=== PATIENT | male | born 1955 | race Caucasian/White ===

== ENCOUNTER 2022-12-27 21:49 | Emergency (ER) | payer MEDICARE, OTHER, SELFPAY ==
[2022-12-27 21:50] VITALS: BP 162/80; PULSE 83; RESP 15; TEMP 36.3; O2SAT 97; BMI 36.6
--- NOTE | 2022-12-27 22:29 | EKG12_ITS ---
Test Reason : CP Blood Pressure : / mmHG Vent. Rate : 080 BPM Atrial Rate : 080 BPM P-R Int : 192 ms QRS Dur : 100 ms QT Int : 388 ms P-R-T Axes : 049 000 044 degrees QTc Int : 447 ms Sinus rhythm with frequent Premature ventricular complexes Otherwise normal ECG Confirmed by EDITH JESUS, MEE ([id number]), index editor DIEGO DENNIS ([id number]) on 12/30/2022 9:24:32 AM Referred By: SANTI Confirmed By:MEE SHARMA MD
--- NOTE | 2022-12-27 22:30 | EDS_ITS ---
HPI History of Present Illness Chief Complaint: Chest Pain Informant: patient and spouse/S.O. Narrative Narrative: Patient presents with episodes of chest pain. He felt as though the lower part of his breastbone in the center. He states it was not a hard hit but he just felt like something was hitting that bone almost from the inside. It lasted for that brief second. He would then have another episode of this. He had about 6 of these spaced out over what sounds like 20 or 30 minutes. In between each of these hits he felt normal. He was not short of breath. He was not diaphoretic. He was not nauseated. He did not get lightheaded dizzy or feel li ke he was going to pass out. He was recently diagnosed with irregular heart rate/PVCs. But he does not really feel these. There is no family history of early heart disease. Patient does have high blood pressure and is on lisinopril hydrochlorothiazide as well as amlodipine. His chart mentions high cholesterol but I see no prior cholesterol measurements, he denies being on meds for this, and he denies having high cholesterol. He is a remote smoker. He has no diabetes. He does have some mild obesity. He has had a prior stress test but it was 20 years ago. He also reports he has had these symptoms in the past but it was many years ago. He does not have them regularly. He does not have history of recent travel surgery immobilization personal or family history of DVT or PE. He is not having symptoms now. Nothing seemed to make the symptoms better or worse. Prior Similar Symptoms: Yes [facility] Medical History (Updated 12/28/22 @ 00:[address] Hamilton Hurd MD) Bipolar 1 disorder Carcinoid tumor Depression Dysthymic disorder Herpes simplex Hyperlipemia Hypertension Impaired fasting blood sugar Liver lesion, left lobe Sleep apnea Home Medications fluoxetine 40 mg capsule 60 mg PO DAILY 07/26/19 [History Last Taken Unknown] losartan 50 mg-hydrochlorothiazide 12.5 mg tablet 1 ea PO DAILY 07/26/19 [History Last Taken Unknown] amlodipine 2.5 mg tablet 2.5 mg PO DAILY 12/27/22 [History Last Taken Unknown] Allergy/AdvReac Type Severity Reaction Status Date / Time No Known Allergies Allergy Unverified 12/27/22 21:52 Family History Mother CVA (cerebral vascular accident) Uncle Diabetes Surgical History H/O arthroscopy of shoulder History of arthroscopic surgery of elbow History of bowel resection S/P cholecystectomy Social History household members: spouse Smoking Status: Former smoker alcohol intake: never substance use type: does not use ROS ROS ED Constitutional Constitutional ED: Denies chills, fever(s) or sweats ENT ENT ED: Denies ear pain or rhinorrhea Cardiovascular Cardiovascular: Reports as per HPI and chest pain Respiratory/Chest Respiratory/Chest: Denies cough or dyspnea Gastrointestinal Gastrointestinal: Denies nausea or vomiting Genitourinary Genitourinary ED: Denies urinary frequency Musculoskeletal Musculoskeletal: Denies myalgias Integumentary Denies rash Neurologic Neurologic: Denies headache(s) Psychiatric Psychiatric: Denies anxiety Endocrine Endocrinology: Denies polydipsia or polyuria Hematologic/Lymphatic Hematologic/Lymphatic: Denies easy bleeding or easy bruising Allergic/Immunologic Allergic/Immunologic ED: Denies urticaria EXAM Physical Exam Narrative Exam Narrative: No knownPatient awake alert appropriate no acute distress. He is laying comfortably on the bed. Hooked up to monitor. HEENT shows no pallor. No rash. No diaphoresis. Oropharynx is normal. Eye: No icterus or pallor Neck shows no JVD Lungs are clear and he takes good deep breaths without any pain or discomfort. He has no sternal tenderness. He does point to the very lower portion of the sternum and xiphoid as the area where he feels this sensation. Heart is regular with rate of approximately 75. He has not infrequent PVCs. But he does not seem to feel these. No couplets or greater noted. Abdomen is soft nontender. Bowel sounds are normal. Back shows no CVA tenderness. Extremities show no edema cords asymmetry distended veins or tenderness along the deep venous system. Peripheral pulses are normal x4. Neurologic shows the patient to be awake alert oriented x3. Normal sensation and strength. Skin shows some mild erythema along the skin of the sternum but evidently this is chronic for him. It does not look acutely infected. There is no vesicles. There is no abscess. Most of this is in the upper sternum when he felt the pain is at the lower sternum/xiphoid area. Patient is not diaphoretic. Const Vital Signs: 12/27/22 21:50 12/27/22 22:26 12/27/22 22:36 Temperature 97.4 F L Temperature Source Temporal Pulse Rate 83 Respiratory Rate 15 Respiratory Pattern Normal Blood Pressure 162/80 H Blood Pressure Mean 107 Pulse Ox 97 Oxygen Delivery Method Room Air Room Air Heart Score History: Slightly/Non-Suspicious ECG: Normal Age: >/= 65 years Risk Factors: 1 or 2 Risk Factors Score: 3 MDM MDM MDM Narrative Medical decision making narrative: My independent interpretation of the patient's single view AP chest x-ray shows no acute process. I see no infiltrate, significant cardiomegaly, or pneumothorax. Final reading by radiology shows no radiographic evidence of acute cardiopulmonary disease. Patient CBC including white count hemoglobin and platelets are normal. Electrolytes are normal including kidney function. Glucose is minimally up at 128. His troponin is normal at 5. This patient's story is not a good story for angina. But he had the symptoms shortly before arrival. I will do a delta troponin. I believe he is safe for discharge as long as this is not showing significant elevations. He is asymptomatic. His symptoms are not consistent with pulmonary embolus with multiple episodes of brief focal chest pain at his lower sternum. He has no risk factors for PE. As long as his delta troponin does not show elevation follow-up with his primary physician is appropriate. Lab Data Attestation: I reviewed the patient's lab results. Labs: Laboratory Results - last 24 hr 12/27/22 12/27/22 22:33 22:33 WBC 10.6 RBC 4.83 Hgb 14.1 Hct 42.1 MCV 87.2 MCH 29.2 MCHC 33.5 RDW Std Deviation 41.4 RDW Coeff of Segundo 13.1 Plt Count 263 MPV 9.0 Immature Gran % (Auto) 0.300 Neut % (Auto) 55.0 Lymph % (Auto) 28.6 Greene % (Auto) 10.1 H Eos % (Auto) 5.0 Baso % (Auto) 1.0 Absolute Neuts (auto) 5.8 Absolute Lymphs (auto) 3.02 Nucleated RBC % 0 Sodium 142 Potassium 3.7 Chloride 106 Carbon Dioxide 28.0 Anion Gap 8 BUN 18 Creatinine 1.08 Estim Creat Clear Calc 68.53 Est GFR (MDRD) Af Amer 87 Est GFR (MDRD) Non-Af 72 BUN/Creatinine Ratio 16.7 Glucose 128 H Calcium 9.5 Troponin I High Sens 5 Radiography Diagnostic Testing: Clinical Impression(s) from Imaging Studies Chest X-Ray 12/27/22 22:40 IMPRESSION: No radiographic evidence of acute cardiopulmonary disease. Electronically Signed: Corby Ivory MD at 23:15 EST , EKG Initial EKG: Comments: My independent interpretation of the EKG done for intermittent chest pain shows a sinus rhythm overall rate of 80. There is frequent unifocal PVCs. No acute ST elevation or depression. ME interval, QRS duration and QTc are normal. I looked on our system and did not find a prior EKG. Discharge Plan Triage Chief Complaint: Chest Pain ED Provider: Hamilton Hurd Dx/Rx/DC Orders Clinical Impression: Chest pain, Unifocal PVCs Instructions: ED Chest Pain, Uncertain Cause Prescriptions: No Action losartan-hydrochlorothiazide 1 EACH tablet 1 ea PO DAILY fluoxetine 40 MG capsule 60 mg PO DAILY amlodipine 2.5 mg Tablet 2.5 mg PO DAILY Primary Care Provider: Ace Jules Referrals: Govind Gutierrez [employer]ING SUPERVISOR, [employer]PER[employer] [Non-Staff] - As soon as possible
[2022-12-27] MEDS: Aspirin 81 MG TAB.CHEW 324 MG PO (22:37)
--- NOTE | 2022-12-27 22:40 | RAD_ITS ---
INDICATION: chest pain EXAMINATION/TECHNIQUE: X-RAY - portable upright AP chest x-ray COMPARISON: None. FINDINGS: LINES/DEVICES: None. LUNGS: No consolidation, edema or effusion. No pneumothorax. MEDIASTINUM AND CARDIOVASCULAR STRUCTURES: Cardiac silhouette not enlarged. Central airways and mediastinal contour are unremarkable. BONES AND SOFT TISSUES: Unremarkable. RAD/Chest 1 View (Portable) IMPRESSION: No radiographic evidence of acute cardiopulmonary disease. Electronically Signed: Corby Ivory MD at 23:15 EST ,
[2022-12-27 23:03] LABS: Absolute Lymphocyte Count 3.02 X10^3/uL (0.83-4.51); Absolute Neutrophil Count 5.8 X10^3/uL (2.0-7.7); Basophil# 0.11 X10^3/uL; Eosinophil# 0.53 X10^3/uL; Hematocrit 42.1 % (40-54); Hemoglobin 14.1 g/dL (13.0-16.5); Lymphocyte # 3.02 X10^3/ul (0.83-4.51); Lymphocyte % 28.6 % (19-41); Mean Corp Hgb Conc 33.5 g/dL (32-36); Mean Corpuscular Hgb 29.2 pg (27.0-32.0); Mean Corpuscular Volume 87.2 fL (80-94); Monocyte# 1.07 X10^3/uL; Monocyte% 10.1 % (0-10); NRBC Flagged by Analyzer 0 % (0-5); Neutrophil # 5.81 X10^3/uL (2.7-7.7); Platelet Count 263 K/mm3 (150-450); RBC Distribution Width CV 13.1 % (11.6-14.6); RBC Distribution Width SD 41.4 fl (35.1-43.9); Red Blood Count 4.83 M/mm3 (4.6-6.2); White Blood Count 10.6 K/mm3 (4.4-11.0)
[2022-12-27 23:19] LABS: Anion Gap 8 (5-15); BUN 18 mg/dL (7-18); BUN/Creat Ratio 16.7 RATIO (10-20); Calcium,Total 9.5 mg/dL (8.5-10.1); Chloride 106 mmol/L (98-107); Creatinine, Serum 1.08 mg/dL (0.70-1.30); EST Glomerular Filtration Rate 72 mL/min (>60); Est Glom Filt Rate - Afr Amer 87 mL/min (>60); Estimated Creatinine Clearance 68.53 ml/min; Glucose 128 mg/dL (74-106); Potassium 3.7 mmol/L (3.5-5.1); Sodium Level 142 mmol/L (136-145); Troponin-I HS (w/2H Reflex) 5 pg/mL (3.0-78.0)
[2022-12-28 00:58] LABS: Reflex Troponin-HS? (from REC) Y
[2022-12-28 01:06] VITALS: PULSE 73; RESP 19; O2SAT 95
[2022-12-28 01:26] LABS: Troponin-I HS 6 pg/mL (3.0-78.0)
[2022-12-28 01:54] VITALS: BP 145/88; PULSE 79; RESP 16; O2SAT 97
== END 2022-12-28 01:54 | disposition home or self-care (01) ==
PROVIDERS: Emergency Provider Emergency Medicine; PCP Internal Medicine; Visit Provider Emergency Medicine
DX: R07.9 Chest pain, unspecified (principal); F31.9 Bipolar disorder, unspecified; I49.3 Ventricular premature depolarization; E66.9 Obesity, unspecified; E78.5 Hyperlipidemia, unspecified; R55 Syncope and collapse; Z87.891 Personal history of nicotine dependence; I10 Essential (primary) hypertension
CPT/HCPCS: 71045; 80048; 84484; 85025; 93005; 99284; A4216

== ENCOUNTER 2023-02-04 10:40 | Emergency (ER) | payer MEDICARE, OTHER, SELFPAY ==
[2023-02-04 10:42] VITALS: BP 132/71; PULSE 68; RESP 18; TEMP 35.8; O2SAT 98; BMI 38.0
--- NOTE | 2023-02-04 11:16 | EKG12_ITS ---
Test Reason : CP Blood Pressure : / mmHG Vent. Rate : 062 BPM Atrial Rate : 062 BPM P-R Int : 190 ms QRS Dur : 098 ms QT Int : 412 ms P-R-T Axes : 018 008 031 degrees QTc Int : 418 ms Normal sinus rhythm Normal ECG Confirmed by ROXY JESUS, CHIQUIS ([id number]), book or script editor DIEGO DENNIS ([id number]) on 02/06/2023 8:58:13 AM Referred By: IWONA/KAY Confirmed By:CHIQUIS RAMSEY MD
--- NOTE | 2023-02-04 11:18 | EX.ED.DYSGE1 ---
HPI History of Present Illness Chief Complaint: Chest Pain Informant: patient Narrative Narrative: Patient presenting for 2 different symptom issues, initially chest discomfort he states it felt like some burning/pressure this morning in his lower chest/epigastrium, it sort of went away until the next issue became a problem, when the chest discomfort returned. He states he was on the ground trying to look under a wall, doing electrical work in a structure, and upon landing on the ground rolling over onto his back and looking up, he suddenly became vertiginous. He felt disoriented, his focus was off although he did not have any acute visual disturbance, he laid there on his stomach prone for a little while until it resolved, then he was able to get up and walk to the bathroom, he sat on the toilet and then was off balance and actually fell off the toilet without an injury. He has not had recurrence of the vertigo since then became right here, he states that the chest discomfort recurred as he was getting the vertigo, it is mild now but still present as far as the chest discomfort. Denies any dyspnea, recent cough, no history of cardiac issues. He takes antihypertensives and is compliant with those. He had vertigo in the past. Denies any earache now, tinnitus, or headache. Denies any recent URI or gastroenteritis symptoms in the last couple weeks or now. [facility] Medical History (Updated 02/04/23 @ 13:[address] Oracio Cuevas MD) Bipolar 1 disorder Carcinoid tumor Depression Dysthymic disorder Herpes simplex Hyperlipemia Hypertension Impaired fasting blood sugar Liver lesion, left lobe Sleep apnea Home Medications fluoxetine 40 mg capsule 60 mg PO DAILY 07/26/19 [History Last Taken Unknown] losartan 50 mg-hydrochlorothiazide 12.5 mg tablet (Hyzaar) 1 ea PO DAILY 07/26/19 [History Last Taken Unknown] amlodipine 2.5 mg tablet 2.5 mg PO DAILY 12/27/22 [History Last Taken Unknown] meclizine 25 mg tablet 25 mg PO Q8H PRN PRN Dizziness #20 tabs 02/04/23 [Rx Last Taken Unknown] metoprolol succinate 25 mg tablet,extended release 24 hr 25 mg PO DAILY 02/04/23 [History Last Taken Unknown] Allergy/AdvReac Type Severity Reaction Status Date / Time No Known Allergies Allergy Verified 02/04/23 10:43 Family History Mother CVA (cerebral vascular accident) Uncle Diabetes Surgical History H/O arthroscopy of shoulder History of arthroscopic surgery of elbow History of bowel resection S/P cholecystectomy Social History household members: spouse Smoking Status: Former smoker alcohol intake: never substance use type: does not use ROS ROS ED Constitutional Constitutional ED: Denies chills or fever(s) Eyes Eyes: Denies change in vision or diplopia ENT ENT ED: Denies rhinorrhea or sore throat Cardiovascular Cardiovascular: Reports chest pain; Denies palpitations Respiratory/Chest Respiratory/Chest: Denies cough or dyspnea Gastrointestinal Gastrointestinal: Reports abdominal pain; Denies diarrhea, nausea or vomiting Genitourinary Genitourinary ED: Denies dysuria or hematuria Musculoskeletal Musculoskeletal: Denies back pain or neck pain Integumentary Denies abscess or rash Neurologic Neurologic: Reports vertigo; Denies headache(s), paresthesias or weakness Psychiatric Psychiatric: Denies anxiety or suicidal thoughts EXAM Physical Exam Const Vital Signs: 02/04/23 10:42 02/04/23 11:19 02/04/23 12:03 Temperature 96.5 F L Temperature Source Temporal Pulse Rate 68 60 Respiratory Rate 18 15 Blood Pressure 132/71 H 145/76 H Blood Pressure Mean 91 99 Pulse Ox 98 97 96 Oxygen Delivery Method Room Air Nasal Cannula Room Air Positive well nourished and well developed General Appearance ED: well developed and NAD HEENT Reports TM's clear and moist mucous membranes HEENT Narrative: EAC normal bilaterally. No mastoiditis or tenderness. normocephalic and atraumatic Tympanic Membrane ED: Yes TM's clear Eyes PERRL and EOMs intact bilaterally Eyes Narrative: At rest, no horizontal, vertical, rotatory nystagmus. Neck full ROM and supple Resp normal respiratory effort and clear to auscultation bilaterally Cardio regular rate, regular rhythm and no murmurs GI non-tender and non-distended GI Narrative: No pulsatile mass palpable. Equal bilateral radial and dorsalis pedis pulses 2+/4 Auscultation: normoactive bowel sounds Palpation: soft Back/Spine no CVA tenderness General Back: other FROM Extremity normal to inspection General Extremety ED: Negative for edema, pulses abnormal or tenderness General Extremity: Negative for edema or pulses abnormal Neuro oriented x3, CN's II-XII intact bilaterally and no sensory deficits noted Neuro Narrative: Normal [id number] and [id number] bilaterally. Positive Gregory-Hallpike with reproduction of symptoms and horizontal nystagmus to the right, nothing when doing the same maneuver to the left. Normal neurologic exam otherwise. Sensorium / Orientation: awake and alert Motor Exam: strength 5/5 throughout Psych mental status grossly normal Skin no rashes or lesions noted and no wounds MDM MDM MDM Narrative Medical decision making narrative: EKG and troponin normal, 2 view chest x-ray my interpretation normal, radiology in agreement. The rest of his labs are normal as well except for his lipase which is slightly elevated. Patient has had prior cholecystectomy. His abdomen is benign, he does not have a leukocytosis and I do not think he needs any emergent abdominal imaging right now. With his elevated lipase that may be the explanation of his lower chest/epigastric discomfort and I think he can be discharged home with this, to do a full liquid diet and then advance his diet as able gradually, following up with his doctor or returning if worse/any other issues. He is comfortable with that plan and feeling much better after meclizine, his vertigo is very likely to be peripheral, and I will give him ENT information if it does not resolve on its own. Lab Data Attestation: I reviewed the patient's lab results. Labs: Laboratory Results - last 24 hr 02/04/23 02/04/23 11:35 11:35 WBC 7.7 RBC 4.72 Hgb 14.0 Hct 41.9 MCV 88.8 MCH 29.7 MCHC 33.4 RDW Std Deviation 43.3 RDW Coeff of Segundo 13.2 Plt Count 233 MPV 8.8 Immature Gran % (Auto) 0.700 Neut % (Auto) 60.8 Lymph % (Auto) 23.7 Calhoun % (Auto) 7.7 Eos % (Auto) 5.9 H Baso % (Auto) 1.2 H Absolute Neuts (auto) 4.7 Absolute Lymphs (auto) 1.82 Nucleated RBC % 0 Sodium 140 Potassium 3.7 Chloride 104 Carbon Dioxide 28.0 Anion Gap 8 BUN 23 H Creatinine 1.15 Estim Creat Clear Calc 63.48 Est GFR (MDRD) Af Amer 81 Est GFR (MDRD) Non-Af 67 BUN/Creatinine Ratio 20.0 Glucose 132 H Calcium 9.2 Troponin I High Sens 5 Lipase 481 H Radiography Diagnostic Testing: Clinical Impression(s) from Imaging Studies Chest X-Ray 02/04/23 11:53 IMPRESSION: The lungs are clear. No acute abnormality is seen. Electronically Signed: Abelino Vargas MD at 12:10 EST , Rhythm Strip Rhythm Strip: Sinus Rhythm Rate: 65 Ectopy: None EKG Initial EKG: Attestation: I personally reviewed and interpreted this EKG as follows: Interpretation: Sinus Rhythm and No Acute Injury Pattern Comments: Normal EKG Prior EKG tracings: available for review Prior: Unchanged Discharge Plan Triage Chief Complaint: Chest Pain ED Provider: Oracio Cuevas Dx/Rx/DC Orders Clinical Impression: Peripheral positional vertigo of right ear, Elevated lipase Instructions: Full Liquid Diet Dc, ED BPV Vertigo, ED Diet, Schleicher (Adult) Prescriptions: New meclizine [meclizine] 25 MG tablet 25 mg PO Q8H PRN PRN (Reason: Dizziness) Qty: 20 0RF No Action losartan-hydrochlorothiazide [Hyzaar] 1 EACH tablet 1 ea PO DAILY fluoxetine 40 MG capsule 60 mg PO DAILY amlodipine 2.5 mg Tablet 2.5 mg PO DAILY metoprolol succinate 25 mg tablet extended release 24 hr 25 mg PO DAILY Label Comments: TAKE 1 TABLET BY MOUTH EVERY DAY Primary Care Provider: Ace Jules Referrals: Theron Pavon MD [Med Staff - Active Staff] - 1 Week if not improving (For vertigo) Ace Jules MD [Primary Care Provider] - 3-5 Days if not improving Activity Restrictions/Additional Instructions: Follow the full liquid diet for the next 48 hours approximately. Then advance her diet as tolerated, may try bland diet after that for a day or 2. Disposition Disposition: Home, Self Care
[2023-02-04 11:19] VITALS: O2SAT 97
[2023-02-04] MEDS: Meclizine HCl 25 MG Tablet PO (11:42)
[2023-02-04] MEDS: Ondansetron 4 MG/2 ML Vial IV (11:43)
[2023-02-04 11:46] LABS: Absolute Lymphocyte Count 1.82 X10^3/uL (0.83-4.51); Absolute Neutrophil Count 4.7 X10^3/uL (2.0-7.7); Basophil# 0.09 X10^3/uL; Basophil% 1.2 % (0-1); Eosinophil# 0.45 X10^3/uL; Eosinophils% 5.9 % (0-5); Hematocrit 41.9 % (40-54); Lymphocyte # 1.82 X10^3/ul (0.83-4.51); Lymphocyte % 23.7 % (19-41); Mean Corp Hgb Conc 33.4 g/dL (32-36); Mean Corpuscular Hgb 29.7 pg (27.0-32.0); Mean Corpuscular Volume 88.8 fL (80-94); Mean Platelet Vol. 8.8 fl (6.2-12.0); Monocyte# 0.59 X10^3/uL; Monocyte% 7.7 % (0-10); NRBC Flagged by Analyzer 0 % (0-5); Neutrophil # 4.69 X10^3/uL (2.7-7.7); Neutrophil % 60.8 % (47-70); Platelet Count 233 K/mm3 (150-450); RBC Distribution Width CV 13.2 % (11.6-14.6); RBC Distribution Width SD 43.3 fl (35.1-43.9); Red Blood Count 4.72 M/mm3 (4.6-6.2); White Blood Count 7.7 K/mm3 (4.4-11.0)
--- NOTE | 2023-02-04 11:53 | RAD_ITS ---
STUDY: X-RAY CHEST REASON FOR EXAM: Male, 67 years old. Chest pain TECHNIQUE: PA and lateral views of the chest. COMPARISON: Comparison is made with prior study dated December 27, 2022. FINDINGS: EKG electrodes are seen. The lungs are clear and expanded. There is no demonstrated pleural abnormality. Normal size heart. Normal mediastinum and jeremy. Normal visualized pulmonary arteries. Normal visualized aortic arch and descending thoracic aorta. There are diffuse degenerative changes of the visualized thoracic spine. Normal visualized ribs, clavicles, and shoulders. There is no demonstrated abnormality of the visualized soft tissue structures of the upper abdomen. RAD/Chest PA and Lateral IMPRESSION: The lungs are clear. No acute abnormality is seen. Electronically Signed: Abelino Vargas MD at 12:10 EST ,
[2023-02-04 12:02] LABS: Anion Gap 8 (5-15); BUN 23 mg/dL (7-18); Calcium,Total 9.2 mg/dL (8.5-10.1); Chloride 104 mmol/L (98-107); Creatinine, Serum 1.15 mg/dL (0.70-1.30); EST Glomerular Filtration Rate 67 mL/min (>60); Est Glom Filt Rate - Afr Amer 81 mL/min (>60); Estimated Creatinine Clearance 63.48 ml/min; Glucose 132 mg/dL (74-106); Lipase 481 U/L (73-393); Potassium 3.7 mmol/L (3.5-5.1); Sodium Level 140 mmol/L (136-145); Troponin-I HS 5 pg/mL (3.0-78.0)
[2023-02-04 12:03] VITALS: BP 145/76; PULSE 60; RESP 15; O2SAT 96
[2023-02-04 13:35] VITALS: BP 148/76; PULSE 72; RESP 15; O2SAT 97
== END 2023-02-04 13:37 | disposition home or self-care (01) ==
PROVIDERS: Emergency Provider Emergency Medicine; PCP Internal Medicine; Visit Provider Emergency Medicine
DX: H81.391 Other peripheral vertigo, right ear (principal); F31.9 Bipolar disorder, unspecified; R10.13 Epigastric pain; R74.8 Abnormal levels of other serum enzymes; Z87.891 Personal history of nicotine dependence; I10 Essential (primary) hypertension; E78.5 Hyperlipidemia, unspecified; Z90.49 Acquired absence of other specified parts of digestive tract
CPT/HCPCS: 71046; 80048; 83690; 84484; 85025; 93005; 99285; A4216; J2405

== ENCOUNTER → 2025-10-13 | Outpatient (CLI) | payer MEDICARE, SELFPAY ==
[2025-10-13 18:22] LABS: Barbiturate Urine NEGATIVE (< 200 ng/mL); Benzodiazepine Urine NEGATIVE (< 200 ng/mL); PCP Urine NEGATIVE (< 25 ng/mL); THC Urine NEGATIVE (< 50 ng/mL)
== END | disposition home or self-care (01) ==
PROVIDERS: PCP Internal Medicine; Visit Provider Internal Medicine Pulmonary Disease
DX: G47.10 Hypersomnia, unspecified (principal)
CPT/HCPCS: 80307